=== PATIENT | female | born 1975 | race Caucasian/White ===

== ENCOUNTER 2017-04-17 20:27 | Emergency (ER) | payer OTHER ==
[~2017-04-17] VITALS: Ht 175.3 cm; Wt 88.5 kg
--- NOTE | ~2017-04-17 | CT2 ---
[facility] A Service of [facility] RADIOLOGY TEXT RESULTS PATIENT: KYLIE BASS LOCATION: [facility] : 77 UNIT #: [id number] AGE: [address]: Chad Nur MD SEX: F ORDER DR: [id number] [facility] [address] [place], [place] [address] [id number] MR#: [id number] Acc #: [id number] NAME: KYLIE BASS. : 1975 SEX: F STUDY DATE/TIME: 04/18/2017 0:20 UNIT: [facility] ROOM: STUDY DESCRIPTION: CT Abd and Pelv W Cont Attending Physician: Chad Nur M.D. Ordering Physician: Chad Nur M.D. Primary Care Physician: Barbara Hunt M.D. MEDICAL IMAGING REPORT This report is preliminary unless electronic signature is present EXAM CT abdomen and pelvis with contrast, 04/18/2017. HISTORY 42-year-old female in the ED complaining of abdomen pain beginning yesterday. She has noted nausea, vomiting and diarrhea over a week. TECHNIQUE CT examination of the abdomen and pelvis with IV contrast. GI contrast was not ordered or was not consumed. This CT exam was performed with one or more of the following radiation dose reduction techniques: automatic exposure control, adjustment of mA and/or kV according to patient size, and iterative reconstruction. COMPARISON CT abdomen, 09/18/2016 FINDINGS ABDOMEN FINDINGS: Laparoscopic band device appears in satisfactory position, and there is no distal esophageal dilatation. The stomach is nondistended. Cholecystectomy. No significant bile duct dilatation. Liver, pancreas, spleen, and kidneys are normal in size and appearance. No evidence of urinary obstruction. Small bowel and colon are normal in caliber and appearance, as imaged. The appendix is normal. PELVIS FINDINGS: Small bilateral physiologic ovary cysts. Uterus, urinary bladder, and rectum are within normal limits. No inguinal hernia or significant abdominal wall hernia. [facility] A Service of [facility] RADIOLOGY TEXT RESULTS PATIENT: KYLIE BASS LOCATION: [facility] : 77 UNIT #: [id number] AGE: [address]: Chad Nur MD SEX: F ORDER DR: Limited lung base images show no active disease in the lower chest. IMPRESSION 1. No acute abnormality within the abdomen or pelvis. 2. Laparoscopic band device in place. Cholecystectomy. 3. Normal appendix. Dictated by... Jimmy Pederson M.D. THIS IS AN ELECTRONICALLY VERIFIED REPORT Jimmy Pederson M.D. at 04/18/2017 3:53 PM NIKI/dina TD: 04/18/2017 12:01 JOB #: [id number] MEDICAL IMAGING REPORT Page 1 of 1 COPY
[~2017-04-17 20:27] MED LIST: ADVAIR INH; ALBUTEROL17 GM NEB; ASTELIN137 MCG INH; CELEBREX PO; CONCERTA PO; CONCERTA36 MG PO; FLONASE16 GM; GABAPENTIN600 MG PO; GAS-X80 MG PO; KEFLEX PO; KLONOPIN PO; LOESTRIN FE1 EA PO; LORTAB 7.5-5001 TAB PO; MUCINEX DM1 TAB.SR . PO; NASOCORT; NEURONTIN300 MG PO; NUVARING V1 VAG.RING VG; OMEGA 3 FISH OI1 CAP; OXYCODONE15 M1 PO; PEPCID40 MG PO; PERCOCET7.5 PO; PHENERGAN PO; PHENERGAN12.5 MG PO; PROTONIX PO; PROVENTIL17 GM IH; VICODIN 5/500 T1 TAB PO; VITAMIN C500 M1; VITAMIN D1000 UNI1; VIVANSE
[2017-04-17 23:10] LABS: BASOPHIL# 0.1 X10e3 (0-0.3); BASOPHIL% 1.2 % (0-2.5); DIFF IND NO; EOSINOPHIL# 0.2 X10e3 (0-0.7); EOSINOPHIL% 1.7 % (0.0-7.0); HEMATOCRIT 39.5 % (35.0-45.0); LYMPHOCYTE# 4.3 X10e3 (1.0-3.5); LYMPHOCYTE% 45.3 % (17.0-45.0); MONOCYTE# 0.7 X10e3 (0-1.0); MONOCYTE% 7.7 % (3.0-12.0); NEUTROPHIL# 4.1 X10e3 (1.5-7.1); NEUTROPHIL% 44.1 % (40-75); PLATELET COUNT 300 X10e3 (140-420); RED BLOOD COUNT 4.82 X10e (3.90-5.30); RED CELL DISTRIBUTION WIDTH 17.5 % (11.0-15.5); WHITE BLOOD COUNT 9.4 X10e3 (4.0-10.5)
[2017-04-17 23:20] LABS: URINE SOURCE CLEAN CATCH
[2017-04-17 23:30] LABS: ALBUMIN SERUM 4.4 g/dL (3.5-5.0); ALKALINE PHOSPHATASE 54 U/L (32-92); ALT (SGPT) 13 U/L (10-40); AMYLASE 36 U/L (0-46); AST (SGOT) 15 U/L (10-42); BILIRUBIN,TOTAL 0.2 mg/dL (0.2-2.0); BLOOD UREA NITROGEN 10 mg/dL (9-23); BUN/CREATININE RATIO 11.11; CARBON DIOXIDE 25 mmol/L (22-31); CHLORIDE 105 mmol/L (100-111); CREATININE SERUM 0.9 mg/dL (0.6-1.4); GLOM FILT RATE Estimated 79.5 mL/min (>60); GLUCOSE FASTING 90 mg/dL (70-110); LIPASE 47 U/L (22-51); POTASSIUM 4.4 mmol/L (3.5-5.1); PROTEIN TOTAL SERUM 7.5 g/dL (6.0-8.3); SODIUM 139 mmol/L (135-145)
[2017-04-17 23:31] LABS: BILIRUBIN, DIRECT <0.1 mg/dL (0.0-0.2); BILIRUBIN,INDIRECT 0.1 mg/dL (0.0-0.9)
[2017-04-17 23:32] LABS: URINE APPEARANCE CLOUDY; URINE BILIRUBIN NEG (NEG); URINE BLOOD NEG (NEG); URINE COLOR YELLOW; URINE GLUCOSE NEG (NEG); URINE KETONE NEG (NEG); URINE LEUKOCYTE ESTERASE NEG (NEG); URINE NITRATE NEG (NEG); URINE PH 5.5 (5-8); URINE PROTEIN NEG (NEG); URINE SPECIFIC GRAVITY 1.014 (1.003-1.035); URINE UROBILINOGEN 0.2 MG/DL (NEG)
[2017-04-17 23:41] LABS: CULTURE INDICATED? NO
== END 2017-04-18 01:40 | disposition home or self-care (01) ==
LOC: CED 20:27
PROVIDERS: Emergency Medicine
DX: R10.9 Unspecified abdominal pain (principal); Z87.442 Personal history of urinary calculi; Z90.49 Acquired absence of other specified parts of digestive tract; Z98.84 Bariatric surgery status; Z88.1 Allergy status to other antibiotic agents; Z88.5 Allergy status to narcotic agent; Z98.890 Other specified postprocedural states
CPT/HCPCS: 36415; 74177; 80048; 80076; 81003; 82150; 83690; 85025; 96374; 96375; 99284; C9113; J2270; J2765; J3010; Q9967

== ENCOUNTER 2017-04-23 21:20 | Inpatient (IN) | payer OTHER ==
[~2017-04-23] VITALS: Ht 175.3 cm; Wt 88.5 kg
--- NOTE | ~2017-04-23 | CO ---
Unit #: [id number] #: [id number] Patient: KYLIE BASS [id number] [address] [place], [place] [address] [id number] I MR#: [id number] NAME: KYLIE BASS. ROOM: 459 Age: 42 Sex: F Admission Date: 04/24/2017 : 1975 Attending Physician: Je Chand M.D. Primary Care Physician: Barbara Hunt M.D. Consultation Date: 04/24/2017 CONSULTATION REPORT BRIEF HISTORY The patient is a 42-year-old lady with persistent nausea, vomiting, abdominal pain. She was recently evaluated in my office for persistent discomfort with lap band and suspected lap band slip. She was scheduled here in the near future for lap band removal. She denies any fever or chills. She has had normal bowel function. PAST MEDICAL HISTORY Respiratory dysfunction. PAST SURGICAL HISTORY She has had a cholecystectomy, lap band surgery with lap band revision. Multiple sections. SOCIAL HISTORY No alcohol. No smoking. FAMILY HISTORY Negative for GI malignancy. ALLERGIES Acetaminophen. HOME MEDICATIONS 1. Neurontin. 2. Protonix. 3. Reglan. 4. Tylenol #3. REVIEW OF SYSTEMS No cardiopulmonary complaints at this time else 10-system review negative. PHYSICAL EXAMINATION GENERAL APPEARANCE: She is awake, alert, currently afebrile. No distress. VITAL SIGNS: Temperature 98.3. HEENT: Unremarkable. NECK: Supple. No JVD. Trachea midline. LUNGS: Clear to auscultation bilateral. Breath sounds symmetric. CARDIOVASCULAR: Regular rate and rhythm. ABDOMEN: Soft. It is nontender. I palpate no masses. No hepatosplenomegaly. EXTREMITIES: No clubbing, cyanosis or edema. DIAGNOSTIC STUDIES Unit #: [id number] #: [id number] Patient: KYLIE BASS LABORATORY: Normal white count. Chemistries are normal. ASSESSMENT Gastric outlet obstruction secondary to lap band slip. PLAN Recommend lap band removal. I discussed risks and benefits in detail. The patient understands and wished to proceed. Dictated by... Alonzo Smith/renetta TD: 04/24/2017 11:45 JOB #: [id number] CONSULTATION REPORT Page 1 of 1 X Je Chand MD CONSULTATION REPORT
--- NOTE | ~2017-04-23 | OR ---
Unit #: [id number] #: [id number] Patient: KYLIE BASS [id number] [address] [address] [id number] MR#: [id number] NAME: KYLIE BASS. ROOM: 459 Date of Procedure: 04/25/2017 Admission Date: 04/24/2017 Surgeon: Je Chand M.D. : 1975 Attending Physician: Je Chand M.D. Primary Care Physician: Barbara Hunt M.D. OPERATIVE REPORT PREOPERATIVE DIAGNOSES Laparoscopic adjustable gastric band slip with gastric outlet obstruction. POSTOPERATIVE DIAGNOSES Laparoscopic adjustable gastric band slip with gastric outlet obstruction. PROCEDURES PERFORMED 1. Removal of laparoscopic adjustable gastric band. 2. Removal of laparoscopic adjustable gastric band port. ASSISTANT PROJECT ENGINEER None. ANESTHESIA General. ESTIMATED BLOOD LOSS Minimal. IV FLUIDS 500 crystalloid. COMPLICATIONS None. INDICATIONS FOR PROCEDURE The patient is a 42-year-old lady presents with a gastric outlet obstruction secondary to band slip. She presents for band removal. DESCRIPTION OF PROCEDURE The patient was taken to the operating theater and placed in supine position. General anesthesia was induced. The abdomen was prepped and draped. A 10-mm Visiport was placed in the left upper quadrant without difficulty. The abdomen was insufflated to 15 mmHg with CO2. Upon entering the abdominal cavity, I saw no evidence of infection. There did appear to be an anterior slip with some inflammation around the band, consistent with an obstruction. Thus, I made a 3 cm incision over the lap band port. This was taken out. The tubing cut at a 5-mm port, placed at this site. I placed a right upper quadrant 5 mm port. The patient was placed in Trendelenburg. I was able to identify the band. I took down some adhesions with Bovie electrocautery and then cut the band using the scissors. This released the band from around the stomach. This Unit #: [id number] #: [id number] Patient: KYLIE BASS decompressed the proximal stomach obstruction. The band was then removed via the 10 mm port site. I closed the 10 mm port site with 0 Vicryl and the skin with 4-0 Vicryl. The patient tolerated the procedure well and sent to recovery room in good condition. Dictated by... Alonzo Smith/santo TD: 04/27/2017 08:11 JOB #: [id number] OPERATIVE REPORT Page 1 of 1 X Je Chand MD X PROCEDURE OPERATIVE NOTE
--- NOTE | ~2017-04-23 | CR2 ---
[facility] A Service of [facility] RADIOLOGY TEXT RESULTS PATIENT: KYLIE BASS LOCATION: [place] [address] : [birth year] UNIT #: [id number] AGE: [address]: Je Chand MD SEX: F ORDER DR: [id number] [facility] [address] [place], [place] [address] [id number] I MR#: [id number] Acc #: [id number] NAME: KYLIE BASS. : 1975 SEX: F STUDY DATE/TIME: 04/24/2017 0:39 UNIT: C4B ROOM: [facility] STUDY DESCRIPTION: CR Abdomen Acute Series Attending Physician: Je Chand M.D. Ordering Physician: Chad Nur M.D. Primary Care Physician: Barbara Hunt M.D. MEDICAL IMAGING REPORT This report is preliminary unless electronic signature is present EXAM Acute abdomen series 04/24/2017 HISTORY 42-year-old female in the ED complaining of 2-week history of left- sided abdomen pain and nausea. TECHNIQUE Flat and upright abdomen series with AP upright chest x-ray. FINDINGS Bowel gas pattern is within normal limits. No evidence of bowel obstruction or bowel perforation. Laparoscopic band in place. Cholecystectomy clips. Chest x-ray is negative. The lungs are expanded and clear. IMPRESSION 1. Negative acute abdomen series. 2. Laparoscopic band device in place. Cholecystectomy. Dictated by... Jimmy Pederson M.D. THIS IS AN ELECTRONICALLY VERIFIED REPORT Jimmy Pederson M.D. at 04/27/2017 11:06 PM NIKI/vilma TD: 04/24/2017 13:25 JOB #: [id number] MEDICAL IMAGING REPORT [facility] A Service of [facility] RADIOLOGY TEXT RESULTS PATIENT: KYLIE BASS LOCATION: [place] [address] : [birth year] UNIT #: [id number] AGE: [address]: Je Chand MD SEX: F ORDER DR: Page 1 of 1 COPY
[2017-04-23 23:21] LABS: URINE SOURCE CLEAN CATCH
[2017-04-23 23:28] LABS: URINE APPEARANCE CLOUDY; URINE BILIRUBIN NEG (NEG); URINE BLOOD 3+ (NEG); URINE COLOR YELLOW; URINE GLUCOSE NEG (NEG); URINE KETONE NEG (NEG); URINE LEUKOCYTE ESTERASE 1+ (NEG); URINE NITRATE NEG (NEG); URINE PROTEIN TRACE (NEG); URINE UROBILINOGEN 0.2 MG/DL (NEG)
[2017-04-23 23:31] LABS: CULTURE INDICATED? YES; URINE BACTERIA AUWI NEG (NEGATIVE); URINE SQUAMOUS EPITHELIAL CELL OCC /[HPF]
[2017-04-24 01:12] LABS: BASOPHIL# 0.1 X10e3 (0-0.3); BASOPHIL% 1.2 % (0-2.5); EOSINOPHIL# 0.3 X10e3 (0-0.7); EOSINOPHIL% 2.7 % (0.0-7.0); HEMATOCRIT 37.4 % (35.0-45.0); HEMOGLOBIN 12.4 gm/dL (12.0-16.0); LYMPHOCYTE# 4.9 X10e3 (1.0-3.5); LYMPHOCYTE% 49.5 % (17.0-45.0); MEAN CELL VOLUME 82.9 FL (83-96); MEAN CORPUSCULAR HEMOGLOBIN 27.4 PG (28-34); MEAN PLATELET VOLUME 8.8 FL (6.5-11.5); MONOCYTE# 0.6 X10e3 (0-1.0); NEUTROPHIL# 4.1 X10e3 (1.5-7.1); NEUTROPHIL% 40.6 % (40-75); PLATELET COUNT 308 X10e3 (140-420); RED BLOOD COUNT 4.52 X10e (3.90-5.30)
[2017-04-24 01:14] LABS: DIFF IND NO
[2017-04-24 01:45] LABS: ALBUMIN SERUM 4.4 g/dL (3.5-5.0); ALKALINE PHOSPHATASE 57 U/L (32-92); ALT (SGPT) 15 U/L (10-40); AMYLASE 23 U/L (0-46); AST (SGOT) 15 U/L (10-42); BLOOD UREA NITROGEN 7 mg/dL (9-23); BUN/CREATININE RATIO 8.75; CALCIUM SERUM 8.5 mg/dL (8.4-10.2); CARBON DIOXIDE 27 mmol/L (22-31); CHLORIDE 101 mmol/L (100-111); CREATININE SERUM 0.8 mg/dL (0.6-1.4); GLOM FILT RATE Estimated 91.7 mL/min (>60); GLUCOSE FASTING 93 mg/dL (70-110); LIPASE 25 U/L (22-51); POTASSIUM 3.8 mmol/L (3.5-5.1); PROTEIN TOTAL SERUM 7.4 g/dL (6.0-8.3); SODIUM 135 mmol/L (135-145)
[2017-04-24 01:48] LABS: BILIRUBIN, DIRECT <0.1 mg/dL (0.0-0.2); BILIRUBIN,TOTAL <0.1 mg/dL (0.2-2.0)
[2017-04-25] MEDS ORDERED: HYDROCODON-ACE1 EAC7 PO (10:31)
== END 2017-04-25 11:22 | disposition home or self-care (01) | DRG 988 ==
LOC: CED 21:20 → CEDOF 04-24 02:10 → CED 04-24 02:12 → CEDOF 04-24 02:12 → C4B 04-24 03:20
PROVIDERS: Emergency Medicine
PROC: 0DP64CZ Removal of Extraluminal Device from Stomach, Percutaneous Endoscopic Approach (ICD-10-PCS; principal; 2017-04-25)
DX: K95.09 Other complications of gastric band procedure (principal); K31.1 Adult hypertrophic pyloric stenosis; Y73.1 Therapeutic (nonsurgical) and rehabilitative gastroenterology and urology devices associated with adverse incidents; Z90.49 Acquired absence of other specified parts of digestive tract; J45.909 Unspecified asthma, uncomplicated
CPT/HCPCS: 36415; 74022; 80048; 80076; 81003; 82150; 83690; 84703; 85025; 87086; 96361; 96374; 96375; 99285; C9113; J0330; J1100; J1885; J2250; J2270; J2405; J2543; J2550; J2710; J2765; J3010